=== PATIENT | female | born 1960 | race Caucasian/White ===

== ENCOUNTER → 2020-07-25 | Outpatient (CLI) | payer BC | LOC: MC.RAD 07:45 | DX: Z12.31 Encounter for screening mammogram for malignant neoplasm of breast (principal) ==

== ENCOUNTER 2021-12-17 09:30 | Outpatient (RCR) | payer BC | END 2021-12-19 | disposition home or self-care (01) | LOC: WSST | DX: R41.3 Other amnesia (principal) ==

== ENCOUNTER → 2022-12-22 | Outpatient (CLI) | payer BC | LOC: COL.RAD 12-18 14:00 | DX: G31.84 Mild cognitive impairment of uncertain or unknown etiology (principal) ==